=== PATIENT | female | born 1965 | race Caucasian/White ===

== ENCOUNTER → 2019-08-15 | Outpatient (CLI) | payer OTHER ==
[~2019-08-15] MED LIST: AMBIEN 10 MG TA10 MG PO; COMPAZINE10 MG PO; LEVAQUIN 500 M500 M2 PO; LIDOCAINE VISC100 M1 MUCOUS MEM; LIPITOR10 MG PO; OLANZAPINE10 MG PO; ONDANSETRON HCL8 MG PO; PERCOCET PO; REGLAN 10 MG TA10 MG PO; TRAMADOL 50 MG50 MG PO; XANAX 0.5 MG0.5 MG PO; ZOLOFT50 MG PO
== END ==
LOC: RAD 10:35
DX: M47.898 Other spondylosis, sacral and sacrococcygeal region (principal)